=== PATIENT | male | born 1995 | race Caucasian/White ===

== ENCOUNTER 2017-04-14 20:41 | Emergency (ER) | payer BC ==
[~2017-04-14] VITALS: Ht 175.3 cm; Wt 90.6 kg
[~2017-04-14 20:41] MED LIST: DOXY100T PO; SULF-154 PO
[2017-04-14 20:44] VITALS: BP 151/95; PULSE 103; RESP 18; TEMP 98.2
--- NOTE | 2017-04-14 21:01 | PD ---
HPI Chief Complaint: Laceration/Skin Injury Time Seen by Provider: 20:50 Travel History International Travel<30 days: No Contact w/Intl Traveler<30days: No Traveled to known affect area: No History of Present Illness HPI 22-year-old male presents to the emergency department for evaluation of laceration on his chin 45 minutes prior to arrival. Patient reports he was skateboarding and jumped off the skateboard running into a pole which caused a laceration to his left chin. He denies loss of consciousness or falling to the ground. He denies any jaw pain or dental injury. There is a 1.5 cm laceration to left chin. Bleeding well controlled. Patient has no other complaints. Tetanus immunization up to date. [facility] Past Medical History Medical History: Denies Significant Hx ADHD: No Cancer: No Cardiovascular Problems: No Diabetes: No Diminished Hearing: No Psychiatric: Yes (HX IN [facility] AND IN [facility]) Immunizations Current: Yes Migraines: No Seizures: No Thyroid Disease: No Ulcer: No Tetanus Vaccination: < 5 Years Influenza Vaccination: No Past Surgical History Surgical History: No Previous Surgery Appendectomy: No Cholecystectomy: No Other Surgery: No Social History Alcohol Use: Yes (couple beers a week) Tobacco Use: Yes (daily 1 PPD) Substance Use: No (denies) Allergies-Medications (Allergen,Severity, Reaction): Coded Allergies: No Known Allergies (Verified , 04/14/17) Reported Meds & Prescriptions Reported Meds & Active Scripts Active No Active Prescriptions or Reported Medications Review of Systems Except as stated in HPI: all other systems reviewed are Neg Physical Exam Narrative GENERAL: Well-nourished, well-developed patient. SKIN: Focused skin assessment warm/dry. 1.5 cm laceration to left chin. Bleeding well controlled. HEAD: Normocephalic. 1.5 cm in length. EYES: No scleral icterus. No injection or drainage. MOUTH: No dental or oral injury. No mandible tenderness. NECK: Supple, trachea midline. No cervical spine tenderness. No JVD or lymphadenopathy. CARDIOVASCULAR: Regular rate and rhythm without murmurs, gallops, or rubs. RESPIRATORY: Breath sounds equal bilaterally. No accessory muscle use. No rib tenderness. GASTROINTESTINAL: Abdomen soft, non-tender, nondistended. MUSCULOSKELETAL: No cyanosis, or edema. BACK: Nontender without obvious deformity. No CVA tenderness. Data Data Last Documented VS Vital Signs Date Time Temp Pulse Resp B/P Pulse Ox O2 Delivery O2 Flow Rate FiO2 04/14/17 20:44 98.2 103 18 151/95 Orders Lidocai-Epi 1%-1:100,000 Inj (Xylocaine- (04/14/17 21:15) MDM Medical Decision Making Medical Screen Exam Complete: Yes Emergency Medical Condition: Yes Differential Diagnosis Laceration, contusion, mandible fracture Narrative Course 22-year-old male presents emergency department for evaluation of a left mckeon laceration after skateboarding accident 45 minutes prior to arrival. Patient reports he jumped off of the skateboard and struck his chin into a nearby pole. He denies loss of consciousness or falling to the ground. He has no other complaint other than pain at the site of the laceration which is mild. The laceration will be repaired with sutures. Patient is instructed to follow up with his primary care provider for wound recheck and suture removal in 7 days. Procedures Procedure Narrative LACERATION LOCATION: Chin LENGTH: 1.5 centimeters NUMBER OF STITCHES/NOAH: 3 REPAIR: The area of the laceration was prepped with Betadine and sterilely draped. The laceration was infiltrated with 1% lidocaine with epi. The wound was copiously irrigated and explored without evidence of foreign body, tendon injury or neurovascular injury. The wound was closed using 5-0 Ethilon. This was a [-] layer repair. A sterile dressing was applied. The patient was advised to keep the dressing clean and dry. Patient tolerated the procedure well. Diagnosis Primary Impression: Facial laceration Qualified Code: S01.81XA - Facial laceration, initial encounter Referrals: Primary Care Physician Patient Instructions: Facial Laceration (ED), General Instructions Scripts No Active Prescriptions or Reported Meds Disposition: 01 DISCHARGE HOME Condition: Stable Anabel Redding Ben RICHARDS April 14, 2017 21:01
[2017-04-14] MEDS ORDERED: LIDOCAINE 1%/EPINEPHrine 1:100,000 SOLN 20 ML VIAL INFIL ONE (21:15)
== END 2017-04-14 22:02 | disposition home or self-care (01) ==
LOC: PHEFT 20:41
DX: S01.81XA Laceration without foreign body of other part of head, initial encounter (principal); W22.02XA Walked into lamppost, initial encounter; Y93.51 Activity, roller skating (inline) and skateboarding; Y92.9 Unspecified place or not applicable; Y99.8 Other external cause status
CPT/HCPCS: 12011

== ENCOUNTER 2017-11-19 15:21 | Emergency (ER) | payer SELFPAY ==
[~2017-11-19] VITALS: Ht 175.3 cm; Wt 84.0 kg
[2017-11-19 15:26] VITALS: BP 151/79; PULSE 102; RESP 16; TEMP 98.1; O2SAT 100
[2017-11-19 15:53] LABS: AUTOMATED NEUTROPHIL # 6.1 TH/MM3 (1.8-7.7); BASOPHIL # 0.1 TH/MM3 (0-0.2); BASOPHIL % 0.8 % (0.0-2.0); EOSINOPHIL # 0.2 TH/MM3 (0-0.4); EOSINOPHIL % 2.6 % (0.0-4.0); HEMATOCRIT 43.7 % (39.0-51.0); HEMOGLOBIN 14.4 GM/DL (13.0-17.0); MEAN CELL VOLUME 88.3 FL (80.0-100.0); MEAN CORPUSCULAR HEMOGLOBIN 29.1 PG (27.0-34.0); MEAN PLATELET VOLUME 10.5 FL (7.0-11.0); MONO % 3.3 % (0.0-8.0); MONOCYTE # 0.3 TH/MM3 (0-0.9); NEUT % 70.3 % (16.0-70.0); PLATELET COUNT 170 TH/MM3 (150-450); RED BLOOD COUNT 4.94 MIL/MM3 (4.50-5.90); RED CELL DISTRIBUTION WIDTH 12.4 % (11.6-17.2); WHITE BLOOD COUNT 8.7 TH/MM3 (4.0-11.0)
--- NOTE | 2017-11-19 15:58 | PD ---
HPI Chief Complaint: Chest Pain Time Seen by Provider: 15:30 Travel History International Travel<30 days: No Contact w/Intl Traveler<30days: No Traveled to known affect area: No History of Present Illness HPI This 22-year-old male says he had a fluttery feeling in the left side of his chest off and on several weeks. He does not describe actual pain. He is not short of breath. He has no history of heart disease. He does not take any medication he smokes marijuana occasionally but denies other drugs. He has been diagnosed as bipolar in the past. PFS Past Medical History ADHD: No Cancer: No Cardiovascular Problems: No Diabetes: No Diminished Hearing: No Psychiatric: Yes (HX IN [facility] AND IN [place] AND [place]) Immunizations Current: Yes Migraines: No Seizures: No Thyroid Disease: No Ulcer: No Past Surgical History Appendectomy: No Cholecystectomy: No Other Surgery: No Social History Alcohol Use: Yes (couple beers a week) Tobacco Use: Yes (daily 1 PPD) Substance Use: No (denies) Allergies-Medications (Allergen,Severity, Reaction): Coded Allergies: No Known Allergies (Verified Adverse Reaction, Unknown, 11/19/17) Reported Meds & Prescriptions Reported Meds & Active Scripts Active No Active Prescriptions or Reported Medications Review of Systems General / Constitutional: No: Fever, Chills Eyes: No: Diploplia, Blurred Vision HENT: No: Headaches Cardiovascular: Positive: Palpitations, No: Chest Pain or Discomfort, Edema Respiratory: No: Cough, Shortness of Breath, Wheezing Gastrointestinal: No: Nausea, Vomiting Genitourinary: No: Urgency, Frequency Skin: No Rash, No Itching Neurologic: No: Weakness, Dizziness Physical Exam Narrative GENERAL: Well-developed male SKIN: Focused skin assessment warm/dry. HEAD: Atraumatic. Normocephalic. EYES: Pupils equal and round. No scleral icterus. No injection or drainage. ENT: No nasal bleeding or discharge. Mucous membranes pink and moist. NECK: Trachea midline. No JVD. CARDIOVASCULAR: Regular rate and rhythm. No murmur appreciated. RESPIRATORY: No accessory muscle use. Clear to auscultation. Breath sounds equal bilaterally. GASTROINTESTINAL: Abdomen soft, non-tender, nondistended. Hepatic and splenic margins not palpable. MUSCULOSKELETAL: No obvious deformities. No clubbing. No cyanosis. No edema. NEUROLOGICAL: Awake and alert. No obvious cranial nerve deficits. Motor grossly within normal limits. Normal speech. PSYCHIATRIC: He is somewhat anxious; insight and judgment normal. Data Data Last Documented VS Vital Signs Date Time Temp Pulse Resp B/P (MAP) Pulse Ox O2 Delivery O2 Flow Rate FiO2 11/19/17 15:26 98.1 102 16 151/79 (103) 100 Orders Orders Complete Blood Count With Diff (11/19/17 15:37) Basic Metabolic Panel (Bmp) (11/19/17 15:37) Troponin I (11/19/17 15:37) Potassium Chloride (Kcl) (11/19/17 16:15) Labs Laboratory Tests Test 11/19/17 15:49 White Blood Count 8.7 TH/MM3 Red Blood Count 4.94 MIL/MM3 Hemoglobin 14.4 GM/DL Hematocrit 43.7 % Mean Corpuscular Volume 88.3 FL Mean Corpuscular Hemoglobin 29.1 PG Mean Corpuscular Hemoglobin Concent 33.0 % Red Cell Distribution Width 12.4 % Platelet Count 170 TH/MM3 Mean Platelet Volume 10.5 FL Neutrophils (%) (Auto) 70.3 % Lymphocytes (%) (Auto) 23.0 % Monocytes (%) (Auto) 3.3 % Eosinophils (%) (Auto) 2.6 % Basophils (%) (Auto) 0.8 % Neutrophils # (Auto) 6.1 TH/MM3 Lymphocytes # (Auto) 2.0 TH/MM3 Monocytes # (Auto) 0.3 TH/MM3 Eosinophils # (Auto) 0.2 TH/MM3 Basophils # (Auto) 0.1 TH/MM3 CBC Comment DIFF FINAL Differential Comment Blood Urea Nitrogen 5 MG/DL Creatinine 0.88 MG/DL Random Glucose 103 MG/DL Calcium Level 8.6 MG/DL Sodium Level 140 MEQ/L Potassium Level 3.4 MEQ/L Chloride Level 106 MEQ/L Carbon Dioxide Level 26.1 MEQ/L Anion Gap 8 MEQ/L Estimat Glomerular Filtration Rate 107 ML/MIN Troponin I LESS THAN 0.02 NG/ML [facility] Medical Decision Making Medical Screen Exam Complete: Yes Emergency Medical Condition: Yes Medical Record Reviewed: Yes Differential Diagnosis Differential includes palpitations, dysrhythmia, electrolyte imbalance, anxiety Narrative Course Potassium is come back slightly low at 3.4. Troponin is normal. Patient is stable for discharge Diagnosis Primary Impression: Palpitations Scripts No Active Prescriptions or Reported Meds Disposition: 01 DISCHARGE HOME Condition: Stable Jeremy Garza MD Nov 19, 2017 15:58
[2017-11-19 16:02] LABS: CHLORIDE 106 MEQ/L (98-107); SODIUM (NA) 140 MEQ/L (136-145)
[2017-11-19 16:04] LABS: CALCIUM 8.6 MG/DL (8.5-10.1)
[2017-11-19 16:05] LABS: BICARBONATE 26.1 MEQ/L (21.0-32.0); BLOOD UREA NITROGEN 5 MG/DL (7-18); GLUCOSE,RANDOM 103 MG/DL (74-106)
[2017-11-19 16:08] LABS: CREATININE 0.88 MG/DL (0.60-1.30); GLOMERULAR FILTRATION RATE 107 ML/MIN (>89)
[2017-11-19 16:13] LABS: TROPONIN I LESS THAN 0.02 NG/ML (0.02-0.05)
[2017-11-19] MEDS ORDERED: POTASSIUM CHLORIDE 20 MEQ CONTROLLED RELEASE TAB PO ONE (16:15)
--- NOTE | 2017-11-20 10:24 | EKG ---
Date Performed: 11/19/2017 Time Performed: 15:29:20 PTAGE: 22 years EKG: Sinus rhythm WITH SINUS ARRHYTHMIA MODERATE INTRAVENTRICULAR CONDUCTION DELAY NONSPECIFIC T-WAVE ABNORMALITY BORD ISHAN ECG NO PREVIOUS TRACING DOCTOR: Jerman Cates Interpretating Date/Time 11/20/2017 10:23:26
== END 2017-11-19 16:43 | disposition home or self-care (01) ==
LOC: PHED 15:21
DX: R00.2 Palpitations (principal); F12.90 Cannabis use, unspecified, uncomplicated; F17.210 Nicotine dependence, cigarettes, uncomplicated
CPT/HCPCS: 80048; 84484; 85025; 93005; 99283